=== PATIENT | male | born 1950 | race Caucasian/White ===

== ENCOUNTER → 2016-07-25 | Outpatient (CLI) | payer MEDICARE, BC ==
--- NOTE | ~2016-07-25 | CT137 ---
[facility] A Service of [facility] RADIOLOGY TEXT RESULTS PATIENT: LUC BUTLER LOCATION: [facility] : 48 UNIT #: [id number] AGE: [address]: Blanquita Myers APRN SEX: M ORDER DR: [id number] [address] [address] [id number] O MR#: [id number] Acc #: [id number] NAME: LUC BUTLER : 1950 SEX: M STUDY DATE/TIME: 07/25/2016 10:31 UNIT: [facility] ROOM: STUDY DESCRIPTION: CT Lung Screening annual Attending Physician: Blanquita Myers A.P.R.N. Referring Physician: Blanquita Myers A.P.R.N. Ordering Physician: Blanquita Myers A.P.R.N. Primary Care Physician: Blanquita Myers A.P.R.N. MEDICAL IMAGING REPORT This report is preliminary unless electronic signature is present. EXAM CT of the chest without contrast, lung cancer screening INDICATION 66-year-old male with 50+ pack-year total smoking history. Current smoker. TECHNIQUE CT of the chest was performed without contrast using low-dose lung cancer screening protocol. Coronal and sagittal reformatted images were obtained. CT dose index 2.[address] exam was performed with one or more of the following radiation dose reduction techniques: automatic exposure control, adjustment of mA and/or kV according to patient size, and iterative reconstruction. COMPARISON 06/07/2015 FINDINGS Emphysema. Stable scarring in the lung apices. Stable micronodule in the left upper lobe on image 32. Stable micronodule in the periphery of right upper lobe on image 27. Calcified granuloma in the right middle lobe. No new nodules. No lymphadenopathy. Coronary artery calcification. No pleural effusion. Limited imaging of the upper abdomen is unremarkable. The bone windows are unremarkable. IMPRESSION Stable tiny micronodules in the upper lobes bilaterally. Emphysema. ACR Lung-RADS category 2. Followup annual low-dose lung cancer screening chest CT in 1 year. Dictated by... [facility] A Service of [facility] RADIOLOGY TEXT RESULTS PATIENT: LUC BUTLER LOCATION: [facility] : 48 UNIT #: [id number] AGE: [address]: Blanquita Myers APRN SEX: M ORDER DR: Vamsi Rodriguez M.D. THIS IS AN ELECTRONICALLY VERIFIED REPORT Vamsi Rodriguez M.D. at 07/25/2016 5:03 PM Meghan TD: 07/25/2016 11:52 JOB #: [id number] MEDICAL IMAGING REPORT Page 1 of 1
== END | disposition home or self-care (01) ==
LOC: SGUS 10:20
DX: F17.210 Nicotine dependence, cigarettes, uncomplicated (principal); E07.89 Other specified disorders of thyroid; R91.8 Other nonspecific abnormal finding of lung field; J43.9 Emphysema, unspecified
CPT/HCPCS: G0297

== ENCOUNTER → 2016-07-28 | Outpatient (CLI) | payer MEDICARE, BC ==
--- NOTE | ~2016-07-28 | US128 ---
[id number] [address] [address] [id number] O MR#: [id number] Acc #: [id number] NAME: LUC BUTLER : 1950 SEX: M STUDY DATE/TIME: 07/28/2016 11:49 UNIT: [facility] ROOM: STUDY DESCRIPTION: Thyroid Attending Physician: Blanquita Myers A.P.R.N. Referring Physician: Blanquita Myers A.P.R.N. Ordering Physician: Blanquita Myers A.P.R.N. Primary Care Physician: Blanquita Myers A.P.R.N. MEDICAL IMAGING REPORT This report is preliminary unless electronic signature is present. EXAM Thyroid ultrasound 07/28/2016 HISTORY Enlarged thyroid on physical examination, thyroid fullness on 07/16/2016. Hypothyroidism. FINDINGS The right thyroid lobe measured 4.5 cm x 2.2 cm x 1.8 cm while the left lobe measured 4.3 cm x 2.3 cm x 1.6 cm. The isthmus measured 4 mm in the AP direction. There are 3 nodules within the mid-right thyroid lobe measuring 1.8 cm, 7 mm and 4 mm respectively. There is a 7 mm nodule in the lower pole of the right thyroid lobe. In the upper pole of the left lobe there is a 12 mm nodule within the adjacent 9 mm nodule. The thyroid is diffusely heterogeneous in echotexture. There are no masses extrinsic to the thyroid. Normal blood flow is seen throughout both thyroid lobes. IMPRESSION Bilateral thyroid nodules characteristic of multinodular goiter. The largest nodule is present in the mid right thyroid lobe measuring 1.8 cm. Dictated by... Jimenez Garza M.D. THIS IS AN ELECTRONICALLY VERIFIED REPORT Jimenez Garza M.D. at 07/30/2016 8:27 AM FARHAN/leonel TD: 07/29/2016 08:57 JOB #: [id number] MEDICAL IMAGING REPORT Page 1 of 1
== END | disposition home or self-care (01) ==
LOC: SGUS 10:51
DX: E07.89 Other specified disorders of thyroid (principal); E04.2 Nontoxic multinodular goiter
CPT/HCPCS: 76536